=== PATIENT | male | born 1945 | race Caucasian/White ===

== ENCOUNTER 2023-07-16 10:50 | Emergency (ER) | payer OTHER, SELFPAY ==
[2023-07-16 10:53] VITALS: BP 130/77
--- NOTE | 2023-07-16 11:07 | ED.GENMED ---
History of Present Illness
General
Chief Complaint: Fall
Time Seen by Provider: 07/16/23 11:03
Travel History
Have you had any contact with someone who has COVID-19?: No
Do you have any symptoms of coronavirus? Fever > 100 degrees, chills, cough, shortness of breath, sore throat, loss of taste or smell, muscle aches, or headache?: No
History of Present Illness
History of Present Illness:
HPI: Patient fell off a ladder injuring his right wrist/hand as he missed the last step. He denies head injury. He is on Plavix with no other anticoagulation. His pain is primarily on the ulnar aspect of the right hand/wrist
EXAM:
GENERAL: Well appearing in no distress
HEENT: Moist oral mucosa
CARDIOVASCULAR: No murmurs, normal heart rate, regular rhythm, No chest wall tenderness
PULMONARY: No respiratory distress, breath sounds are clear and equal
ABDOMEN: Soft with no peritoneal signs, no tenderness
NEUROLOGIC: Excellent strength all extremities, no coordination deficits
PSYCHIATRIC: Appropriate mental status, normal insight and judgement
EXTREMITIES: There is no significant tenderness to the radius but there is some mild soft tissue tenderness over the ulnar aspect distally
SKIN: Chronic appearing venous stasis to both lower extremities/skin changes from antiplatelet use
TIME OF INITIAL ENCOUNTER: 11:20 AM
NUMBER AND COMPLEXITY OF PROBLEMS ADDRESSED AT THE ENCOUNTER
� Chronic conditions affecting care: History of CVA, high blood pressure, hyperlipidemia
� Acute Exacerbation and/or Progression of Chronic Illness: This is an acute problem
� Differential Diagnosis includes: Wrist fracture, hand fracture, contusion, sprain
AMOUNT AND/OR COMPLEXITY OF DATA TO BE REVIEWED AND ANALYZED
� I performed an independent evaluation of and my interpretation is:
EKG:
CT:
X-rays: X-rays personally reviewed, there is concern for a fracture of the radial metaphysis
Laboratory Studies:
Other:
� Review of other/old records: I reviewed records, the patient was here as a STEMI 1 year ago
� Clinical information was obtained by an independent historian: I spoke to family at bedside
� Prescriptions/Medications Considered but not given:
� Further testing considered but not performed:
RISK OF COMPLICATIONS AND/OR MORBIDITY OR MORTALITY OF PATIENT MANAGEMENT
� Social determinants of health affecting care: Lives at home, is going away on a trip in 3 days
� Discussion with other providers:
� Escalation of care including admission/observation vs risk of discharge considered: Although there is concern for fracture of the right distal radius, there is no significant tenderness in this location. I considered using
formal splint however since he is going away we will plan to use Velcro wrist splint instead. He declines narcotic analgesia.
Past History
Past History
ED Past Medical History: HTN, Hypercholesterolemia and Other (Peripheral vascular disease)
ED Past Surgical History: Orthopedic and Other (aaa repair, femoropopliteal bypass)
Social History
Tobacco: Smoker
Alcohol: None
Drug: None
Personal:
Living: with family
Employment: Retired
Family History
Family History: Other (Noncontributory)
Phy Exam
Physical Exam
Physical Exam:
See HPI
Course
Orders/Labs/Results
Orders:
Orders
07/16/23 10:57
CR Wrist - Right Min 3 Views Urgent
Comment:
Reason For Exam: pain, swelling
Hand, Right 3 View [CR Hand - Right Min 3 Views] Urgent
Comment:
Reason For Exam: pain, swelling
07/16/23 11:53
Splints/Slings/Crut- Treatment ONCE
Crutches: No
Location: Right
Type of Splint: Volar
Vital Signs
Initial and Last Documented VS:
Initial Vital Signs
Temp Pulse Resp BP Pulse Ox
97.7 F 53 18 130/77 98
07/16/23 10:53 07/16/23 10:53 07/16/23 10:53 07/16/23 10:53 07/16/23 10:53
Last Documented Vital Signs
Temp Pulse Resp BP Pulse Ox
97.7 F 53 18 130/77 98
07/16/23 10:53 07/16/23 10:53 07/16/23 10:53 07/16/23 10:53 07/16/23 10:53
*Critical Care Note
Total Time (30-74mins, 75-104mins- exclusive of procedures): Not Applicable
ED Attending Note
-
Portions of this chart may have been created with voice recognition software.� Occasional wrong word or��sound alike� substitutions may have occurred due to the inherent limitations of voice recognition software.
Discharge Plan
Departure
Prescriptions:
No Action
losartan 50 MG tablet
50 mg PO HS
sildenafil [Viagra] 50 MG tablet
50 mg PO PRN PRN (Reason: sexual intercourse)
Patient Comments:
05/24/18: has not used in at least 48 hours
clopidogrel 75 MG tablet
75 mg PO HS
rosuvastatin 20 MG tablet
40 mg PO HS
vitamin E (dl, acetate) 400 UNITS capsule
400 units PO DAILY
diltiazem HCl 240 MG capsule,extended release 24hr
240 mg PO HS
aspirin 81 MG tablet,chewable
81 mg PO DAILY 0RF
ascorbic acid (vitamin C) [Vitamin C] 500 MG tablet
1,000 mg PO DAILY
multivitamin with folic acid [Tab-A-Nolan] 1 TABLET tablet
1 tab PO Daily
Referrals:
Yunior Cotto, DO [Family Provider] -
Interventions
Interventions:
*ED COVID-19 Vaccine History Last Done: 07/16/23 10:53
Discharge Date and Time
Print Language: LAO
== END 2023-07-16 12:39 | disposition home or self-care (01) ==
LOC: EMR 10:50
PROVIDERS: EMERGENCY PHYSICIAN Emergency Medicine; FAMILY PHYSICIAN Student in an Organized Health Care Education/Training Program
DX: S52.501A Unspecified fracture of the lower end of right radius, initial encounter for closed fracture (principal); W11.XXXA Fall on and from ladder, initial encounter; I10 Essential (primary) hypertension; E78.5 Hyperlipidemia, unspecified; F17.200 Nicotine dependence, unspecified, uncomplicated; Z86.73 Personal history of transient ischemic attack (TIA), and cerebral infarction without residual deficits
CPT/HCPCS: 99283; 29125; 73110; 73130

== ENCOUNTER → 2023-08-11 07:45 | Outpatient (REF) | payer OTHER, SELFPAY | LOC: RAD 07:45 | PROVIDERS: ATTENDING PHYSICIAN Surgery Vascular Surgery; FAMILY PHYSICIAN Student in an Organized Health Care Education/Training Program | DX: I71.40 Abdominal aortic aneurysm, without rupture, unspecified (principal); I73.9 Peripheral vascular disease, unspecified | CPT/HCPCS: 76770; 93922; 93925 ==

== ENCOUNTER → 2023-09-01 14:33 | Outpatient (REF) | payer OTHER, SELFPAY | LOC: RAD 14:33 | PROVIDERS: ATTENDING PHYSICIAN Internal Medicine Critical Care Medicine; FAMILY PHYSICIAN Student in an Organized Health Care Education/Training Program | DX: R91.1 Solitary pulmonary nodule (principal) | CPT/HCPCS: 71250 ==

== ENCOUNTER → 2024-07-04 12:53 | Outpatient (REF) | payer OTHER, SELFPAY | LOC: RAD 12:53 | PROVIDERS: ATTENDING PHYSICIAN Surgery Vascular Surgery; FAMILY PHYSICIAN Family Medicine | DX: I71.40 Abdominal aortic aneurysm, without rupture, unspecified (principal); I73.9 Peripheral vascular disease, unspecified | CPT/HCPCS: 76770; 93922; 93925 ==

== ENCOUNTER → 2024-08-01 07:18 | Outpatient (REF) | payer OTHER, SELFPAY | LOC: RAD 07:18 | PROVIDERS: ATTENDING PHYSICIAN Registered Nurse | DX: I73.9 Peripheral vascular disease, unspecified (principal) | CPT/HCPCS: 75635; Q9967 ==

== ENCOUNTER → 2024-09-28 08:34 | Outpatient (REF) | payer OTHER, SELFPAY | LOC: RAD 08:34 | PROVIDERS: ATTENDING PHYSICIAN Internal Medicine Critical Care Medicine; FAMILY PHYSICIAN Family Medicine | DX: J44.9 Chronic obstructive pulmonary disease, unspecified (principal) | CPT/HCPCS: 71046 ==

== ENCOUNTER → 2025-01-29 07:43 | Outpatient (REF) | payer OTHER, SELFPAY | LOC: RAD 07:43 | PROVIDERS: ATTENDING PHYSICIAN Surgery Vascular Surgery | DX: I73.9 Peripheral vascular disease, unspecified (principal) | CPT/HCPCS: 93922; 93925 ==